=== PATIENT | male | born 1960 | race African-American/Black ===

== ENCOUNTER 2018-08-11 14:26 | Emergency (ER) | payer MEDICAID ==
[2018-08-11 14:45] VITALS: BP 128/77
--- NOTE | 2018-08-11 15:22 | ED Physician Documentation ---
PD HPI BACK INJURY - Stated complaint Stated Complaint: BACK PX - History obtained from History obtained from: Patient - History of Present Illness Location: Right, Lower Type of injury: Other (he was doing heavier lifting 2 days ago, without impact nor fall. Says back started hurting later in day and had gotten more painful with spasms and pain on ROM today. Pain down lateral right leg, without numbness nor weakness.). No: Fall, Twist Where injury occurred: Home Timing - onset: How many days ago (2) Timing - duration: Days (2) Timing - details: Gradual onset, Still present (worse today) Quality: Pain, Spasm Worsened by: Moving, Palpating Associated symptoms: Other (has pain radiating down lateral right leg intermittently). No: Fever, Weakness, Numbness, Incontinent of urine Contributing factors: No: Anticoagulated, Prior back surgery Similar symptoms before: Has not had sx before Recently seen: Not recently seen Review of Systems Constitutional: denies: Fever, Chills Cardiac: denies: Chest pain / pressure, Palpitations Respiratory: denies: Dyspnea, Cough GI: denies: Abdominal Pain, Nausea, Vomiting : denies: Incontinent Skin: denies: Rash, Lesions Neurologic: denies: Focal weakness, Numbness PD PAST MEDICAL HISTORY - Past Medical History Cardiovascular: None Respiratory: None Neuro: None Endocrine/Autoimmune: None - Present Medications Home Medications: Ambulatory Orders Medication Instructions Recorded Confirmed Naproxen 500 mg PO BID #20 tablet 08/11/18 Oxycodone HCl/Acetaminophen 1 - 2 each PO Q6H PRN #20 tablet 08/11/18 [Percocet 5-325 mg Tablet] diazePAM [Diazepam] 5 mg PO TID PRN #20 tablet 08/11/18 - Allergies Allergies/Adverse Reactions: Allergies Allergy/AdvReac Type Severity Reaction Status Date / Time No Known Drug Allergies Allergy Verified 08/11/18 14:45 PD ED PE NORMAL - Vitals Vital signs reviewed: Yes - General General: Alert and oriented X 3, Well developed/nourished - Cardiac Cardiac: RRR, No murmur - Respiratory Respiratory: Clear bilaterally - Abdomen Abdomen: Soft, Non tender - Back Back: No CVA TTP, Other (tenderness right paralumbar area and some to midline of lumbar area. ) - Derm Derm: Normal color, Warm and dry, No rash - Extremities Extremities: No tenderness to palpate, Normal ROM s pain, No edema, No calf tenderness / cord - Neuro Neuro: Alert and oriented X 3, No motor deficit, No sensory deficit, Normal speech, Other (normal knee and ankle reflexes. ) Results - Vitals Vitals: Vital Signs - 24 hr 08/11/18 14:41 Temperature 35.9 C L Heart Rate 68 Respiratory 19 Rate Blood Pressure 128/77 O2 Saturation 100 Oxygen O2 Source Room air - Rads (name of study) lumbar CT Radiology: Prelim report reviewed, See rad report PD MEDICAL DECISION MAKING - ED course Complexity details: reviewed results (CT without acute fractures nor significant abnormalities. ), considered differential, d/w patient Departure - Departure Disposition: 01 Home, Self Care Clinical Impression: Low back strain Qualifiers: Encounter type: initial encounter Qualified Code(s): S39.012A - Strain of muscle, fascia and tendon of lower back, initial encounter Condition: Stable Record reviewed to determine appropriate education?: Yes Instructions: ED Low Back Pain Injury, ED Sprain Strain Lumbar Follow-Up: Arcadio Jorge MD [Primary Care Provider] - Prescriptions: diazePAM [Diazepam] 5 mg PO TID PRN #20 tablet PRN Reason: Spasms Naproxen 500 mg PO BID #20 tablet Oxycodone HCl/Acetaminophen [Percocet 5-325 mg Tablet] 1 - 2 each PO Q6H PRN #20 tablet PRN Reason: pain Comments: Heat and stretching for the low back to reduce spasms and stiffness. Naproxen anti-inflammatory twice daily with food for the next week or so. Diazepam 3 times a day as needed for muscle spasms. Add Percocet if needed for pains. Use Tylenol if needed for this mild pain. Recheck if not improving over the next several days and should be approved most of the way within a week or so. Follow-up with your primary care if not. Return as needed. Discharge Date/Time: 08/11/18 17:49
[2018-08-11] MEDS ORDERED: KETOROLAC 30 MG/ML VIAL IM STA (15:45)
[2018-08-11] MEDS ORDERED: ONDANSETRON ODT 4 MG TABLET TL STA (15:45)
[2018-08-11] MEDS ORDERED: diazePAM 5 MG TABLET PO STA (15:45)
[2018-08-11] MEDS ORDERED: HYDROmorphone 2 MG/ML VIAL IM STA (15:45)
--- NOTE | 2018-08-11 17:27 | CT Report ---
Reason: lumbar pain after lifting few days ago Procedure Date: 08/11/2018 Accession Number: [id number] / [id number] Procedure: CT - LUMBAR SPINE WO CPT Code: FULL RESULT: EXAM: CT LUMBAR SPINE WITHOUT CONTRAST EXAM DATE: 08/11/2018 04:28 PM. CLINICAL HISTORY: Lumbar pain after lifting a few days ago. COMPARISONS: None. TECHNIQUE: Thin-section axial images were acquired of the lumbar spine from T12 to S1 without contrast. Post-processing: Coronal and sagittal reformats. Other: None. In accordance with CT protocol optimization, one or more of the following dose reduction techniques were utilized for this exam: automated exposure control, adjustment of mA and/or KV based on patient size, or use of iterative reconstructive technique. FINDINGS: Alignment: No scoliosis or spondylolisthesis. Bones: Five [id number] lumbar vertebral bodies are present. No fractures or bone lesions. Disk Levels/Facets: T12-L1: Unremarkable. L1-L2: Unremarkable. L2-L3: Unremarkable. L3-L4: Unremarkable. L4-L5: Small disk bulge without significant central canal stenosis. No foraminal stenosis. No significant facet arthropathy or disk narrowing. L5-S1: Mild disk narrowing with a small disk bulge. No central canal or foraminal stenosis. No significant facet arthropathy. Musculature: Normal. No fatty atrophy. Other: The visualized retroperitoneum is unremarkable. Gallbladder is surgically absent. No paraspinal hematoma. IMPRESSION: 1. No acute fracture. 2. No spondylolisthesis. Gentle levoscoliosis. 3. Mild L4-L5 and L5-S1 degenerative disk disease and small disk bulge. No significant foraminal stenosis. [facility]
[2018-08-11] MEDS ORDERED: oxyCODONE 5 MG TABLET PO STA (17:32)
== END 2018-08-11 17:49 | disposition home or self-care (01) ==
LOC: ED 14:26
DX: S39.012A Strain of muscle, fascia and tendon of lower back, initial encounter (principal); X50.0XXA Overexertion from strenuous movement or load, initial encounter
CPT/HCPCS: 72131; 96372; 99283; A9270; J1170; Q0162